=== PATIENT | male | born 1955 ===

== ENCOUNTER 2019-01-20 13:17 | Day surgery (SDC) | payer MEDICARE, BC ==
[~2019-01-20 13:17] MED LIST: Buffered Lidocaine 1% SYRIN* 1 ML/SYRINGE INTRADERM ONE; Bupivacaine 0.25% SDV* 30 ML ONE; Lactated Ringers 1000 ML Bag* 1,000 ML IV SCH
[2019-01-20] MEDS ORDERED: Sodium Citrate/Citric Acid* 15 ML UDC ONE (14:28)
[2019-01-20] MEDS ORDERED: fentaNYL* 50 MCG/ML 2 ML VIAL (100 MCG VIAL) ONE (15:03)
[2019-01-20] MEDS ORDERED: Propofol* 10 MG/ML 20 ML BTL ONE (15:04)
[2019-01-20] MEDS ORDERED: Lidocaine 2% PF * 5 ML VIAL ONE (15:04)
[2019-01-20] MEDS ORDERED: Ondansetron INJ* 2 MG/ML VIAL IV PRN (15:32)
[2019-01-20] MEDS ORDERED: Naloxone* 0.4 MG/ML 1 ML VIAL IV PRN (15:32)
[2019-01-20] MEDS ORDERED: fentaNYL* 50 MCG/ML 2 ML VIAL (100 MCG VIAL) IV PRN (15:32)
[2019-01-20] MEDS ORDERED: EPHEDrine (Pressors)* 50 MG/ML VIAL ONE (15:32)
[2019-01-20] MEDS ORDERED: Ketorolac INJ* 15 MG/ML 1 ML VIAL IV PUSH ONE (15:35)
[2019-01-20 15:57] VITALS: BP 120/74
--- NOTE | 2019-01-20 20:42 | OP ---
DATE OF OPERATION: 01/20/19 [facility] DATE OF : 51 SURGEON: Karson Jones MD COSTING MANAGER: EARNESTINE Carey ANESTHESIOLOGIST: Dr. Martins. ANESTHESIA: General. PRE-OP DIAGNOSIS: Left carpal tunnel syndrome. POST-OP DIAGNOSIS: Left carpal tunnel syndrome. OPERATIVE PROCEDURE: Left endoscopic carpal tunnel release. INDICATIONS: Vini is 63 years old. He has left carpal tunnel syndrome. It is getting pretty severe clinically. We talked about risks and benefits. He wanted to proceed with surgery. He understands the risk of nerve injury. ESTIMATED BLOOD LOSS: 1 mL. COMPLICATIONS: None. FINDINGS: See above and below. DESCRIPTION OF PROCEDURE: Vini was seen in the preoperative holding area. The correct site, side, and procedure were identified. We came back to the operating room where the arm was prepped and draped in the usual fashion and a time-out was performed. The arm was exsanguinated with the Esmarch and the tourniquet inflated to 250 mmHg. A 1-cm incision was made proximal to the wrist flexion crease and just ulnar to the palmaris longus tendon. Dissection was carried down. The distal antebrachial fascia was bluntly spread apart transversely with the tenotomy scissors and a two-prong skin hook was placed. Synovial stripper followed by the dilators and a Q-tip were inserted to dilate and dry out the carpal tunnel. The MicroAire endoscopic carpal tunnel system was then introduced and when it was in the appropriate location, the blade was elevated and the transverse carpal ligament was released on the ulnar aspect from distal to proximal taking great care to make sure the median nerve was not visualized during the release. I placed a Donna retractor and I checked to confirm that the ligament was completely transected. There was excellent gap between the ligament. The distal antebrachial fascia proximally was released. The decompression was checked and once everything looked good, we irrigated out the wound. A 0.25% plain Marcaine was infiltrated. The wound was closed with a 4-0 Monocryl suture and Steri-Strips. A soft dressing was applied and he was taken to the recovery room in stable condition. [id number]/[facility] #: [id number] [facility]
== END 2019-01-20 16:31 | disposition home or self-care (01) ==
LOC: OREAST 13:17
PROVIDERS: ATTEND Orthopaedic Surgery Hand Surgery
DX: G56.03 Carpal tunnel syndrome, bilateral upper limbs (principal); M19.90 Unspecified osteoarthritis, unspecified site
CPT/HCPCS: A9270-GY; J2704; J3010; J3490

== ENCOUNTER 2019-02-10 06:25 | Day surgery (SDC) | payer MEDICARE, BC ==
[~2019-02-10 06:25] MED LIST changes: -Bupivacaine 0.25% SDV* 30 ML ONE; +Dexamethasone IV* 4 MG/ML 1 ML (4 MG) IV SLOW PU ONE; +Dexamethasone IV* 4 MG/ML 1 ML (4 MG) ONE; +Famotidine IV* 10 MG/ML 2 ML (20 mg) IV ONE; +Famotidine IV* 10 MG/ML 2 ML (20 mg) ONE
[2019-02-10] MEDS ORDERED: Bupivacaine 0.25% SDV* 30 ML ONE (07:24)
[2019-02-10] MEDS ORDERED: Ondansetron INJ* 2 MG/ML VIAL ONE ×2 (07:28→10:00)
[2019-02-10] MEDS ORDERED: Lidocaine 2% PF * 5 ML VIAL ONE (07:28)
[2019-02-10] MEDS ORDERED: fentaNYL* 50 MCG/ML 2 ML VIAL (100 MCG VIAL) ONE (07:28)
[2019-02-10] MEDS ORDERED: Propofol* 10 MG/ML 20 ML BTL ONE (07:28)
[2019-02-10] MEDS ORDERED: EPHEDrine (Pressors)* 50 MG/ML VIAL ONE (07:50)
[2019-02-10] MEDS ORDERED: fentaNYL* 50 MCG/ML 2 ML VIAL (100 MCG VIAL) IV PRN (08:02)
[2019-02-10] MEDS ORDERED: Naloxone* 0.4 MG/ML 1 ML VIAL IV PRN (08:02)
[2019-02-10] MEDS ORDERED: Ketorolac INJ* 30 MG/ML 1 ML VIAL IV PRN (08:02)
[2019-02-10] MEDS ORDERED: DiMENhydriNATE IV* 50 MG/ML VIAL IV PUSH PRN (08:02)
[2019-02-10 08:55] VITALS: BP 110/64
[2019-02-10] MEDS ORDERED: Ketorolac INJ* 30 MG/ML 1 ML VIAL ONE (10:00)
--- NOTE | 2019-02-10 13:45 | OP ---
DATE OF OPERATION: 02/10/19 [facility] DATE OF : 51 SURGEON: Karson Jones MD AUTOMATED EQUIPMENT ENGINEER TECHNICIAN: EARNSETINE Bush ANESTHESIOLOGIST: Dr. Holm. ANESTHESIA: General. PRE-OP DIAGNOSIS: Right carpal tunnel syndrome. POST-OP DIAGNOSIS: Right carpal tunnel syndrome. OPERATIVE PROCEDURE: Right endoscopic carpal tunnel release. INDICATIONS: Vini has done well with a left carpal tunnel release. We talked about risks and benefits. He wanted to do the right side as well. ESTIMATED BLOOD LOSS: 2 mL. COMPLICATIONS: None. FINDINGS: See above and below. DESCRIPTION OF PROCEDURE: Vini was seen in the preoperative holding area. The correct side, site, and procedure were identified. We came back to the operating room. The arm was prepped and draped in the usual fashion. A time- out was performed. The arm was exsanguinated and then the tourniquet inflated to 250 mmHg. I made a 1 cm transverse incision just ulnar to the palmaris longus tendon just proximal to the wrist flexion crease. Dissection was carried down, the distal antebrachial fascia was spread transversely and opened with the tenotomy scissors. The 2-prong skin hook was placed. The synovial stripper followed by the dilators and then the Q-tip were used to open up and drain out carpal tunnel. The MicroAire endoscopic carpal tunnel system was then introduced in the right spot. I went ahead and elevated the blade and released the transverse carpal ligament from distal to proximal. Once I completed the release, I placed a Donna retractor and confirmed that the release was complete. Everything was looking good. At this point, I released the distal antebrachial fascia proximally. The skin was closed with a 4-0 Prolene suture and the Steri-Strips. 0.25% plain Marcaine was infiltrated and he was taken to the recovery room in stable condition. [id number]/[facility] #: [id number] [facility]
== END 2019-02-10 08:50 | disposition home or self-care (01) ==
LOC: OREAST 06:25
PROVIDERS: ATTEND Orthopaedic Surgery Hand Surgery
DX: G56.01 Carpal tunnel syndrome, right upper limb (principal); M19.90 Unspecified osteoarthritis, unspecified site; K21.9 Gastro-esophageal reflux disease without esophagitis
CPT/HCPCS: J1100; J1885; J2405; J2704; J3010; J3490